=== PATIENT | male | born 1960 | race Caucasian/White ===

== ENCOUNTER → 2016-09-12 | Outpatient (CLI) | payer MEDICARE, MEDICAID ==
[2016-09-12 07:52] LABS: Urine RBC None Seen /hpf (0 - 3)
[2016-09-12 08:08] LABS: Urine Bilirubin Negative (Negative); Urine Blood Negative /uL (Negative); Urine Color Yellow (Yellow); Urine Glucose Normal (Normal); Urine Ketone Negative (Negative); Urine Nitrite Negative (Negative); Urine Urobilinogen Normal (Negative)
[2016-09-12 08:16] LABS: Albumin 3.8 g/dL (3.4-5.0); BUN/Creatinine Ratio 5.1; Calcium 8.5 mg/dL (8.5-10.1); Potassium 3.9 mmol/L (3.5-5.1)
[2016-09-12 08:26] LABS: Bilirubin, Total 0.4 mg/dL (0.2-1.0); Total Protein 6.9 g/dL (6.4-8.2)
== END | disposition home or self-care (01) ==
LOC: LAB 06:37
PROVIDERS: ATTEND Family Medicine
DX: E78.2 Mixed hyperlipidemia (principal); K76.0 Fatty (change of) liver, not elsewhere classified
CPT/HCPCS: 36415; 80053; 80061; 80185; 81001; 82306; 82550; 82977; 84550

== ENCOUNTER → 2016-12-24 | Outpatient (CLI) | payer MEDICARE, MEDICAID ==
[2016-12-24 08:28] LABS: Albumin 3.9 g/dL (3.4-5.0); BUN/Creatinine Ratio 9.8; Bilirubin, Direct 0.1 mg/dL (0-0.2); Bilirubin, Total 0.3 mg/dL (0.2-1.0); Calcium 8.4 mg/dL (8.5-10.1); Potassium 4.6 mmol/L (3.5-5.1); Total Protein 7.3 g/dL (6.4-8.2)
== END | disposition home or self-care (01) ==
LOC: LAB 07:47
PROVIDERS: ATTEND Family Medicine
DX: E78.2 Mixed hyperlipidemia (principal); G40.309 Generalized idiopathic epilepsy and epileptic syndromes, not intractable, without status epilepticus; F17.210 Nicotine dependence, cigarettes, uncomplicated
CPT/HCPCS: 36415; 80053; 80061; 80076; 80185

== ENCOUNTER → 2017-12-18 | Outpatient (CLI) | payer MEDICARE, MEDICAID ==
[2017-12-18 08:59] LABS: Basophils # (auto) 0.1 uL; Basophils % (auto) 1.1 % (0.0-2.0); Eosinophils # (auto) 0.3 uL; Eosinophils % (auto) 3.6 % (0.0-7.0); Hematocrit 43.1 % (41.0-53.0); Hemoglobin 15.4 g/dL (13.5-17.5); Lymphocytes % (auto) 32.5 % (10.0-50.0); Mean Corpuscular Hemoglobin 34.5 pg (28.0-32.0); Mean Corpuscular Hgb Conc. 35.6 g/dL (32.0-36.0); Mean Corpuscular Volume 96.9 fL (80.0-100.0); Monocytes # (auto) 0.8 uL; Monocytes % (auto) 8.4 % (0.0-12.0); Neutrophils % (auto) 54.4 % (37.0-80.0); Platelet Count (auto) 324 10^3/uL (140-450); Red Blood Cells 4.45 10^6/uL (4.5-5.90); Red Cell Distribution Width 12.6 % (11.8-14.3); White Blood Cell 9.1 10^3/uL (4.4-10.8)
[2017-12-18 09:40] LABS: Alanine Aminotransferase 32 U/L (16-61); Albumin 3.8 g/dL (3.4-5.0); Alkaline Phosphatase 133 U/L (45-117); Anion Gap 10 (5-15); Aspartate Aminotransferase 19 U/L (15-37); BUN/Creatinine Ratio 8.1; Bilirubin, Total 0.2 mg/dL (0.2-1.0); Blood Urea Nitrogen 7 mg/dL (7-18); Calcium 8.4 mg/dL (8.5-10.1); Carbon Dioxide 22 mmol/L (21-32); Chloride 104 mmol/L (98-107); Cholesterol 223 mg/dL (< 200); GFR African American 118 mL/min; GFR Non-African American 98 mL/min; Glucose 96 mg/dL (74-106); HDL Cholesterol 30 mg/dL (40-59); Potassium 4.4 mmol/L (3.5-5.1); Sodium 136 mmol/L (136-145); Total Protein 7.1 g/dL (6.4-8.2); Triglycerides 603 mg/dL (< 150)
== END | disposition home or self-care (01) ==
LOC: LAB 07:46
PROVIDERS: ATTEND Family Medicine
DX: E78.2 Mixed hyperlipidemia (principal); G40.909 Epilepsy, unspecified, not intractable, without status epilepticus; R79.89 Other specified abnormal findings of blood chemistry; E78.5 Hyperlipidemia, unspecified; E55.9 Vitamin D deficiency, unspecified; Z87.891 Personal history of nicotine dependence
CPT/HCPCS: 36415; 80053; 80061; 80185; 82306; 82607; 84443; 85025

== ENCOUNTER → 2018-01-22 | Outpatient (CLI) | payer MEDICARE, MEDICAID ==
[2018-01-22 08:54] LABS: Albumin 3.9 g/dL (3.4-5.0); Bilirubin, Direct 0.1 mg/dL (0-0.2); Bilirubin, Total 0.3 mg/dL (0.2-1.0); Total Protein 7.1 g/dL (6.4-8.2)
== END | disposition home or self-care (01) ==
LOC: LAB 07:47
PROVIDERS: ATTEND Family Medicine
DX: E78.1 Pure hyperglyceridemia (principal)
CPT/HCPCS: 36415; 80061; 80076

== ENCOUNTER → 2018-10-22 | Outpatient (CLI) | payer MEDICARE, MEDICAID ==
[2018-10-22 08:11] LABS: Urine WBC None Seen /hpf (0 - 3)
[2018-10-22 08:49] LABS: Basophils # (auto) 0.1 uL
[2018-10-22 08:51] LABS: Basophils % (auto) 0.7 % (0.0-2.0); Eosinophils # (auto) 0.2 uL; Eosinophils % (auto) 2.8 % (0.0-7.0); Hematocrit 46.1 % (41.0-53.0); Hemoglobin 15.8 g/dL (13.5-17.5); Lymphocytes # (auto) 2.3 uL; Lymphocytes % (auto) 27.3 % (10.0-50.0); Mean Corpuscular Hemoglobin 33.7 pg (28.0-32.0); Mean Corpuscular Hgb Conc. 34.2 g/dL (32.0-36.0); Mean Corpuscular Volume 98.4 fL (80.0-100.0); Monocytes # (auto) 0.8 uL; Monocytes % (auto) 9.5 % (0.0-12.0); Neutrophils % (auto) 59.7 % (37.0-80.0); Platelet Count (auto) 321 10^3/uL (140-450); Red Blood Cells 4.68 10^6/uL (4.5-5.90); Red Cell Distribution Width 13.2 % (11.8-14.3); White Blood Cell 8.3 10^3/uL (4.4-10.8)
[2018-10-22 08:53] LABS: Urine Bacteria NONE SEEN /hpf (None Seen); Urine Blood Negative /uL (Negative); Urine Mucus FEW (None Seen); Urine Specific Gravity 1.008 (1.001-1.035)
[2018-10-22 09:57] LABS: BUN/Creatinine Ratio 6.5; Calcium 8.2 mg/dL (8.5-10.1); Potassium 3.7 mmol/L (3.5-5.1)
[2018-10-22 11:47] LABS: Albumin 3.9 g/dL (3.4-5.0); Bilirubin, Total 0.3 mg/dL (0.2-1.0); Total Protein 7.4 g/dL (6.4-8.2)
== END | disposition home or self-care (01) ==
LOC: LAB 07:54
PROVIDERS: ATTEND Family Medicine
DX: E78.2 Mixed hyperlipidemia (principal); E55.9 Vitamin D deficiency, unspecified; G40.309 Generalized idiopathic epilepsy and epileptic syndromes, not intractable, without status epilepticus; E78.1 Pure hyperglyceridemia; Z72.0 Tobacco use
CPT/HCPCS: 36415; 80053; 80061; 80185; 81001; 82306; 85025

== ENCOUNTER → 2018-11-01 | Outpatient (CLI) | payer MEDICARE, MEDICAID | END | disposition home or self-care (01) | LOC: LAB 09:18 | PROVIDERS: ATTEND Family Medicine | DX: E78.2 Mixed hyperlipidemia (principal); E55.9 Vitamin D deficiency, unspecified; E78.1 Pure hyperglyceridemia; G40.309 Generalized idiopathic epilepsy and epileptic syndromes, not intractable, without status epilepticus; Z72.0 Tobacco use | CPT/HCPCS: 82270 ==

== ENCOUNTER → 2019-06-03 | Outpatient (CLI) | payer MEDICARE, MEDICAID ==
[2019-06-03 08:33] LABS: Albumin 4.1 g/dL (3.4-5.0); Calcium 8.7 mg/dL (8.5-10.1); Potassium 4.4 mmol/L (3.5-5.1)
[2019-06-03 08:38] LABS: BUN/Creatinine Ratio 6.5; Bilirubin, Total 0.6 mg/dL (0.2-1.0); Total Protein 7.3 g/dL (6.4-8.2)
== END | disposition home or self-care (01) ==
LOC: LAB 07:31
PROVIDERS: ATTEND Family Medicine
DX: E55.9 Vitamin D deficiency, unspecified (principal); G40.909 Epilepsy, unspecified, not intractable, without status epilepticus; Z12.5 Encounter for screening for malignant neoplasm of prostate; E78.2 Mixed hyperlipidemia
CPT/HCPCS: 36415; 80053; 80061; 80185; 84153

== ENCOUNTER → 2020-07-17 | Outpatient (CLI) | payer MEDICARE, MEDICAID ==
[2020-07-17 08:17] LABS: Urine WBC None Seen /hpf (0 - 3)
[2020-07-17 08:26] LABS: Urine Bacteria NONE SEEN /hpf (None Seen); Urine Blood Negative /uL (Negative); Urine Mucus FEW (None Seen); Urine Specific Gravity 1.009 (1.001-1.035)
[2020-07-17 08:29] LABS: Basophils # (auto) 0.1 10 ^3/uL (0-0.2); Eosinophils # (auto) 0.3 10 ^3/uL (0-0.8); Lymphocytes # (auto) 2.4 10 ^3/uL (0.4-5.4); Nucleated Red Blood Cells % 0.1 %
[2020-07-17 08:31] LABS: Basophils % (auto) 1.2 % (0.0-2.0); Eosinophils % (auto) 3.4 % (0.0-7.0); Hematocrit 45.7 % (41.0-53.0); Hemoglobin 15.5 g/dL (13.5-17.5); Lymphocytes % (auto) 29.7 % (10.0-50.0); Mean Corpuscular Hemoglobin 33.8 pg (28.0-32.0); Mean Corpuscular Volume 99.4 fL (80.0-100.0); Monocytes # (auto) 0.9 10 ^3/uL (0-1.3); Monocytes % (auto) 11.4 % (0.0-12.0); Neutrophils # (auto) 4.3 10 ^3/uL (1.6-8.6); Neutrophils % (auto) 54.3 % (37.0-80.0); Platelet Count (auto) 337 10^3/uL (140-450); Red Cell Distribution Width 13.4 % (11.8-14.3)
[2020-07-17 09:43] LABS: Potassium 4.9 mmol/L (3.5-5.1)
[2020-07-17 09:52] LABS: Prostate Specific Antigen 0.36 ng/mL (0.0-4.0)
[2020-07-17 10:05] LABS: Albumin 3.7 g/dL (3.4-5.0); BUN/Creatinine Ratio 12.8; Bilirubin, Total 0.3 mg/dL (0.2-1.0); Total Protein 7.4 g/dL (6.4-8.2)
== END | disposition home or self-care (01) ==
LOC: LAB 07:47
PROVIDERS: ATTEND Family Medicine
DX: Z12.5 Encounter for screening for malignant neoplasm of prostate (principal); E78.2 Mixed hyperlipidemia; E55.9 Vitamin D deficiency, unspecified; G40.909 Epilepsy, unspecified, not intractable, without status epilepticus
CPT/HCPCS: 36415; 80053; 80061; 80185; 81001; 82607; 84153; 84443; 85025

== ENCOUNTER → 2021-01-23 | Outpatient (CLI) | payer OTHER, MEDICAID ==
[2021-01-23 10:26] LABS: Potassium 4.3 mmol/L (3.5-5.1)
[2021-01-23 10:35] LABS: Albumin 3.7 g/dL (3.4-5.0); BUN/Creatinine Ratio 12.1; Bilirubin, Total 0.4 mg/dL (0.2-1.0); Calcium 8.8 mg/dL (8.5-10.1); Total Protein 7.1 g/dL (6.4-8.2)
== END | disposition home or self-care (01) ==
LOC: LAB 08:56
PROVIDERS: ATTEND Family Medicine
DX: E78.1 Pure hyperglyceridemia (principal); G40.909 Epilepsy, unspecified, not intractable, without status epilepticus; E55.9 Vitamin D deficiency, unspecified
CPT/HCPCS: 36415; 80053; 80061; 80185; 82306; 82607

== ENCOUNTER → 2021-08-22 | Outpatient (CLI) | payer OTHER, MEDICAID ==
[2021-08-22 09:24] LABS: BUN/Creatinine Ratio 13.3; Calcium 8.3 mg/dL (8.5-10.1); Potassium 4.2 mmol/L (3.5-5.1)
[2021-08-22 09:30] LABS: Albumin 3.8 g/dL (3.4-5.0); Bilirubin, Total 0.4 mg/dL (0.2-1.0); Total Protein 7.6 g/dL (6.4-8.2)
== END | disposition home or self-care (01) ==
LOC: LAB 07:43
PROVIDERS: ATTEND Family Medicine
DX: E78.2 Mixed hyperlipidemia (principal); G40.909 Epilepsy, unspecified, not intractable, without status epilepticus; E55.9 Vitamin D deficiency, unspecified
CPT/HCPCS: 36415; 80053; 80061; 80185; 82306

== ENCOUNTER → 2022-01-22 | Outpatient (CLI) | payer OTHER, MEDICAID ==
[2022-01-22 09:10] LABS: Basophils # (auto) 0.1 10 ^3/uL (0-0.2); Eosinophils # (auto) 0.4 10 ^3/uL (0-0.8); Hematocrit 40.8 % (41.0-53.0); Hemoglobin 14.6 g/dL (13.5-17.5); Lymphocytes # (auto) 3.2 10 ^3/uL (0.4-5.4); Lymphocytes % (auto) 25.3 % (10.0-50.0); Mean Corpuscular Hgb Conc. 35.8 g/dL (32.0-36.0); Monocytes # (auto) 1.1 10 ^3/uL (0-1.3); Monocytes % (auto) 8.5 % (0.0-12.0); Neutrophils # (auto) 7.9 10 ^3/uL (1.6-8.6); Neutrophils % (auto) 62.2 % (37.0-80.0); Nucleated Red Blood Cells % 0.1 %; Red Cell Distribution Width 12.9 % (11.8-14.3); White Blood Cell 12.7 10^3/uL (4.4-10.8)
[2022-01-22 09:47] LABS: Potassium 3.8 mmol/L (3.5-5.1)
[2022-01-22 09:57] LABS: Albumin 3.4 g/dL (3.4-5.0); BUN/Creatinine Ratio 10.9; Bilirubin, Total 0.3 mg/dL (0.2-1.0); Calcium 8.6 mg/dL (8.5-10.1); Total Protein 6.8 g/dL (6.4-8.2)
== END | disposition home or self-care (01) ==
LOC: LAB 08:32
PROVIDERS: ATTEND Student in an Organized Health Care Education/Training Program
DX: Z00.00 Encounter for general adult medical examination without abnormal findings (principal); E55.9 Vitamin D deficiency, unspecified; E78.2 Mixed hyperlipidemia; E78.1 Pure hyperglyceridemia; G40.309 Generalized idiopathic epilepsy and epileptic syndromes, not intractable, without status epilepticus; Z72.0 Tobacco use
CPT/HCPCS: 36415; 80053; 80061; 82270; 85025